=== PATIENT | male | born 1960 | race Caucasian/White ===

== ENCOUNTER → 2024-02-25 | Outpatient (CLI) | payer MEDICARE, SELFPAY ==
[2024-02-25 17:37] LABS: Absolute Lymphocyte Count 1.65 X10^3/uL (0.83-4.51); Absolute Neutrophil Count 5.2 X10^3/uL (2.0-7.7); Basophil# 0.06 X10^3/uL; Basophil% 0.8 % (0-1); Eosinophil# 0.27 X10^3/uL; Eosinophils% 3.4 % (0-5); Hematocrit 42.6 % (40-54); Hemoglobin 13.8 g/dL (13.0-16.5); Lymphocyte # 1.65 X10^3/ul (0.83-4.51); Lymphocyte % 20.8 % (19-41); Mean Corp Hgb Conc 32.4 g/dL (32-36); Mean Corpuscular Hgb 27.3 pg (27.0-32.0); Mean Corpuscular Volume 84.2 fL (80-94); Mean Platelet Vol. 9.9 fl (6.2-12.0); Monocyte# 0.72 X10^3/uL; Monocyte% 9.1 % (0-10); NRBC Flagged by Analyzer 0 % (0-5); Neutrophil % 65.3 % (47-70); Platelet Count 275 K/mm3 (150-450); RBC Distribution Width CV 13.3 % (11.6-14.6); RBC Distribution Width SD 41.1 fl (35.1-43.9); Red Blood Count 5.06 M/mm3 (4.6-6.2)
[2024-02-25 18:33] LABS: Hemoglobin A1c 6.8 % (3.8-5.6)
[2024-02-25 18:58] LABS: ALB/GLOB Ratio 0.9 RATIO (0.9-2.4); AST(SGOT) 18 U/L (15-37); Alanine Aminotransfer ALT/SGPT 27 U/L (16-61); Albumin, Serum 3.6 g/dL (3.2-5.0); Alkaline Phosphatase 55 U/L (45-117); Anion Gap 7 (5-15); BUN 13 mg/dL (7-18); Chloride 106 mmol/L (98-107); Cholesterol 140 mg/dL (200); Creatinine, Serum 0.72 mg/dL (0.70-1.30); EST Glomerular Filtration Rate 116 mL/min (>60); Est Glom Filt Rate - Afr Amer 140 mL/min (>60); Globulin 3.9 g/dL (2.2-4.2); Glucose 114 mg/dL (74-106); High Density Lipoprotein 54 mg/dL; Potassium 3.8 mmol/L (3.5-5.1); Protein, Total 7.5 g/dL (6.4-8.2); Sodium Level 136 mmol/L (136-145); Triglycerides 90 mg/dL; Very Low Density Lipoprotein 18 mg/dL (5-40)
== END | disposition home or self-care (01) ==
LOC: MFPLAB 15:06
PROVIDERS: PCP Family Medicine; Visit Provider Family Medicine
DX: E11.8 Type 2 diabetes mellitus with unspecified complications (principal)
CPT/HCPCS: 36415; 80053; 80061; 83036; 84443; 85025

== ENCOUNTER → 2024-06-30 | Outpatient (CLI) | payer MEDICARE, SELFPAY ==
[2024-06-30 10:17] LABS: Bacteria 0 SEEN /hpf (None Seen); Mucous, Urine 0 SEEN /hpf (<or=2+); Red Blood Cells-Urine 0 SEEN /hpf (0-5); Squamous Epithelial Cells - UA 0 SEEN /hpf (0-5); White Blood Cells 0 SEEN /hpf (0-5)
[2024-06-30 12:16] LABS: Absolute Lymphocyte Count 1.58 X10^3/uL (0.83-4.51); Basophil# 0.08 X10^3/uL; Eosinophil# 0.47 X10^3/uL; Eosinophils% 5.9 % (0-5); Hematocrit 40.8 % (40-54); Hemoglobin 13.4 g/dL (13.0-16.5); Lymphocyte # 1.58 X10^3/ul (0.83-4.51); Lymphocyte % 19.7 % (19-41); Mean Corp Hgb Conc 32.8 g/dL (32-36); Mean Corpuscular Hgb 27.5 pg (27.0-32.0); Mean Corpuscular Volume 83.6 fL (80-94); Mean Platelet Vol. 9.8 fl (6.2-12.0); Monocyte# 0.87 X10^3/uL; Monocyte% 10.8 % (0-10); NRBC Flagged by Analyzer 0 % (0-5); Neutrophil # 4.96 X10^3/uL (2.7-7.7); Neutrophil % 61.9 % (47-70); Platelet Count 230 K/mm3 (150-450); RBC Distribution Width CV 13.7 % (11.6-14.6); RBC Distribution Width SD 41.8 fl (35.1-43.9); Red Blood Count 4.88 M/mm3 (4.6-6.2)
[2024-06-30 12:34] LABS: Color, Urine Yellow (Yellow); Glucose, Dipstick Normal (Normal); Ketone-Dipstick Negative (Negative); Leukocyte Esterase-Dipstick Negative /ul (Negative); Nitrite-Dipstick Negative (Negative); Occult Blood-Urine 10 /ul (Negative); Protein-Dipstick Negative (Negative); Specific Gravity, Urine 1.015 (1.002-1.030); Urine Bilirubin Dipstick Negative (Negative); Urine Clarity Clear (Clear); Urine Urobilinogen Normal (Normal)
[2024-06-30 12:39] LABS: ALB/GLOB Ratio 0.9 RATIO (0.9-2.4); AST(SGOT) 24 U/L (15-37); Alanine Aminotransfer ALT/SGPT 27 U/L (16-61); Albumin, Serum 3.6 g/dL (3.2-5.0); Alkaline Phosphatase 62 U/L (45-117); Anion Gap 8 (5-15); BUN 16 mg/dL (7-18); BUN/Creat Ratio 22.9 RATIO (10-20); Calcium,Total 9.2 mg/dL (8.5-10.1); Chloride 106 mmol/L (98-107); Cholesterol 125 mg/dL (200); EST Glomerular Filtration Rate 120 mL/min (>60); Est Glom Filt Rate - Afr Amer 146 mL/min (>60); Globulin 3.9 g/dL (2.2-4.2); Glucose 120 mg/dL (74-106); High Density Lipoprotein 51 mg/dL; Protein, Total 7.5 g/dL (6.4-8.2); Sodium Level 136 mmol/L (136-145); Triglycerides 94 mg/dL; Very Low Density Lipoprotein 19 mg/dL (5-40)
[2024-06-30 13:05] LABS: Microalbumin,Random Urine 16.8 mg/L (NO RANGE EST.); Microalbumin:Creatinine Ratio 30.6 mg/g CRE (<30 mg/g CRE)
[2024-06-30 14:33] LABS: Hemoglobin A1c 6.8 % (3.8-5.6)
== END | disposition home or self-care (01) ==
LOC: MFPLAB 10:07
PROVIDERS: PCP Family Medicine; Referring Provider Family Medicine; Visit Provider Family Medicine
DX: E11.69 Type 2 diabetes mellitus with other specified complication (principal)
CPT/HCPCS: 36415; 80053; 80061; 81001; 82043; 82570; 83036; 85025

== ENCOUNTER → 2024-10-26 | Outpatient (CLI) | payer MEDICARE, SELFPAY ==
[2024-10-26 10:57] LABS: Hemoglobin A1c 7.1 % (<=5.6)
[2024-10-26 11:04] LABS: ALB/GLOB Ratio 1.3 RATIO (0.9-2.4); AST(SGOT) 25 U/L (<=37); Alanine Aminotransfer ALT/SGPT 20 U/L (<=46); Albumin, Serum 4.2 g/dL (3.4-4.8); Alkaline Phosphatase 59 U/L (40-129); Anion Gap 11 (5-15); BUN 9 mg/dL (4-19); BUN/Creat Ratio 15.1 RATIO (10-20); Calcium,Total 9.5 mg/dL (7.6-11.0); Carbon Dioxide 21.3 mmol/L (21.0-32.0); Chloride 103 mmol/L (98-108); Cholesterol 117 mg/dL (<=200); Creatinine, Serum 0.62 mg/dL (0.70-1.20); EST Glomerular Filtration Rate 106 (>60); Globulin 3.2 g/dL (2.2-4.2); Glucose 108 mg/dL (70-99); High Density Lipoprotein 45 mg/dL; Low Density Lipoprotein Calc. 52 mg/dL; PSA,Total - Annual Screen 0.78 ng/mL (0.02-4.00); Protein, Total 7.5 g/dL (5.9-8.4); Sodium Level 135 mmol/L (133-145); Total Bilirubin 0.35 mg/dL (0.00-1.30); Triglycerides 101 mg/dL; Very Low Density Lipoprotein 20 mg/dL (5-40)
== END | disposition home or self-care (01) ==
LOC: MFPLAB 09:07
PROVIDERS: PCP Family Medicine; Referring Provider Family Medicine; Visit Provider Family Medicine
DX: E11.8 Type 2 diabetes mellitus with unspecified complications (principal); Z12.5 Encounter for screening for malignant neoplasm of prostate
CPT/HCPCS: 36415; 80053; 80061; 83036; 84153; G0103

== ENCOUNTER → 2025-03-01 | Outpatient (CLI) | payer MEDICARE, SELFPAY ==
--- OUTSIDE RECORDS SUMMARY | 2025-03-01 08:38 | XMS RPT_ITS | CCD ---
Author Organization [facility] Care Team Providers Care Investigative Reporter Name Role Phone Ирина OLIVAREZ, Dr. Alfredito Forrest Primary Care Provider [phone]( [phone] Ирина OLIVAREZ, Dr. Alfredito Forrest Attending Provider Ирина OLIVAREZ, Dr. Alfredito Forrest Referring Provider Alfredito Gifford Attending Unavailable Alfredito Gifford Primary Care Unavailable Alfredito Gifford Referring Unavailable Alfredito Gifford Primary Care Unavailable Alfredito Gifford Referring Unavailable Alfredito Gifford Attending Unavailable Alfredito Gifford Primary Care Unavailable Alfredito Gifford Attending Unavailable Problems Problem Classification Problem Date Documented Da te Episodic/Chronic Diabetes mellitus with complications (2 sources) Type 2 diabetes mellitus with unspecified complications; Translations: [Type 2 diabetes mellitus with other specified complication] Onset: 07-21-2024 Chronic Results Test Name Value Interpretation Reference Range Facility Anion gap in Serum or Plasma Ordered By: Alfredito Gifford on 10-26-2024 Anion gap [Moles/Vol] 11 mmol/L 5-15 [facility] BUN/creatinine ratioOrdered By: Alfredito Gifford on 10-26-2024 Urea nitrogen/Creatinine [Mass ratio] 15.1 mg/mg 10-20 [facility] Bilirubin, totalOrdered By: Alfredito Gifford on 10-26-2024 Bilirubin [Mass/Vol] 0.35 mg/dL 0.00-1.30 [facility] Calculated very low density lipoprotein (VLDL) cholesterol measurementOrdered By: Alfredito Gifford on 10-26-2024 Calculated very low density lipoprotein (VLDL) cholesterol measurement 20 mg/dL -40 [facility] Carbon dioxide, total [Moles /volume] in Central venous bloodOrdered By: Alfredito Gifford on 10-26-2024 CO2 [Moles/Vol] 21.3 mmol/L 21.0-32.0 [facility] Chloride assayOrdered By: Yisel Gifford on 10-26-2024 Chloride [Moles/Vol] 103 mmol/L 98-108 [facility] Comprehensive Metabolic Prof ilon 10-26-2024 Albumin [Mass/Vol] 4.2 g/dL Normal 3.4-4.8 [facility] Comment on above: Order Comment: Order Date: 06/30/24 Order Info: [id number] - CMP Order Info: [id number] - LIPID Performed By: #### L 502.0250, L500.4100, L500.4050, L501.9985, L100.0100 #### [facility] [address] [place], [address] Albumin/Globulin [Mass ratio] 1.3 {ratio} Normal 0.9-2.4 [facility] Comment on above: Order Comment: Order Date: 06/30/24 Order Info: [id number] - CMP Order Info: [id number] - LIPID Performed By: #### L 502.0250, L500.4100, L500.4050, L501.9985, L100.0100 #### [facility] [address] [place], [address] ALK PHOS 59 U/L Normal 40-129 [facility] Comment on above: Order Comment: Order Date: 06/30/24 Order Info: [id number] - CMP Order Info: [id number] - LIPID Performed By: #### L 502.0250, L500.4100, L500.4050, L501.9985, L100.0100 #### [facility] [address] [place], [address] ALT [Catalytic activity/Vol] 20 U/L Normal <=46 [facility] Comment on above: Order Comment: Order Date: 06/30/24 Order Info: [id number] - CMP Order Info: [id number] - LIPID Performed By: #### L 502.0250, L500.4100, L500.4050, L501.9985, L100.0100 #### [facility] [address] [place], [address] AST [Catalytic activity/Vol] 25 U/L Normal <=37 [facility] Comment on above: Order Comment: Order Date: 06/30/24 Order Info: [id number] - CMP Order Info: [id number] - LIPID Performed By: #### L 502.0250, L500.4100, L500.4050, L501.9985, L100.0100 #### [facility] [address] [place], [address] Bilirubin [Mass/Vol] 0.35 mg/dL Normal 0.00-1.30 [facility] Comment on above: Order Comment: Order Date: 06/30/24 Order Info: [id number]- - CMP Order Info: [id number] - LIPID Performed By: #### L 502.0250, L500.4100, L500.4050, L501.9985, L100.0100 #### [facility] [address] [place], [address] BUN/CRE 15.1 RATIO Normal 10-20 [facility] Comment on above: Order Comment: Order Date: 06/30/24 Order Info: [id number] - CMP Order Info: [id number] - LIPID Performed By: #### L 502.0250, L500.4100, L500.4050, L501.9985, L100.0100 #### [facility] [address] [place], [address] Calcium [Mass/Vol] 9.5 mg/dL Normal 7.6-11.0 [facility] Comment on above: Order Comment: Order Date: 06/30/24 Order Info: [id number] - CMP Order Info: [id number] - LIPID Performed By: #### L 502.0250, L500.4100, L500.4050, L501.9985, L100.0100 #### [facility] [address] [place], [address] Chloride [Moles/Vol] 103 mmol/L Normal 98-108 [facility] Comment on above: Order Comment: Order Date: 06/30/24 Order Info: [id number] - CMP Order Info: [id number] - LIPID Performed By: #### L 502.0250, L500.4100, L500.4050, L501.9985, L100.0100 #### [facility] [address] [place], [address] CO2 [Moles/Vol] 21.3 mmol/L Normal 21.0-32.0 [facility] Comment on above: Order Comment: Order Date: 06/30/24 Order Info: [id number]- - CMP Order Info: [id number] - LIPID Performed By: #### L 502.0250, L500.4100, L500.4050, L501.9985, L100.0100 #### [facility] [address] [place], [address] Creatinine [Mass/Vol] 0.62 mg/dL Low 0.70-1.20 [facility] Comment on above: Order Comment: Order Date: 06/30/24 Order Info: [id number]- - CMP Order Info: [id number] - LIPID Performed By: #### L 502.0250, L500.4100, L500.4050, L501.9985, L100.0100 #### [facility] [address] [place], [address] GAP 11 Normal 5-15 [facility] Comment on above: Order Comment: Order Date: 06/30/24 Order Info: 0786- - CMP Order Info: [id number] - LIPID Performed By: #### L 502.0250, L500.4100, L500.4050, L501.9985, L100.0100 #### [facility] [address] [place], [address] GFR/1.73 sq M.predicted among non-blacks MDRD (S/P/Bld) [Vol rate/Area] 106 mL/min/{1.73_m2} Normal >60 [facility] Comment on above: Order Comment: Order Date: 06/30/24 Order Info: [id number] - CMP Order Info: [id number] - LIPID Result Comment: mL/m in/1.73m2 CKD-EPI Creatinine Equation (2020) Performed By: #### L 502.0250, L500.4100, L500.4050, L501.9985, L100.0100 #### [facility] [address] [place], [address] Globulin (S) [Mass/Vol] 3.2 g/dL Normal 2.2-4.2 [facility] Comment on above: Order Comment: Order Date: 06/30/24 Order Info: [id number] - CMP Order Info: [id number] - LIPID Performed By: #### L 502.0250, L500.4100, L500.4050, L501.9985, L100.0100 #### [facility] [address] [place], [address] Glucose [Mass/Vol] 108 mg/dL High 70-99 [facility] Comment on above: Order Comment: Order Date: 06/30/24 Order Info: [id number] - CMP Order Info: [id number] - LIPID Performed By: #### L 502.0250, L500.4100, L500.4050, L501.9985, L100.0100 #### [facility] [address] [place], [address] Potassium [Moles/Vol] 4.0 mmol/L Normal 3.3-5.1 [facility] Comment on above: Order Comment: Order Date: 06/30/24 Order Info: [id number] - CMP Order Info: [id number] - LIPID Performed By: #### L 502.0250, L500.4100, L500.4050, L501.9985, L100.0100 #### [facility] [address] [place], [address] Sodium [Moles/Vol] 135 mmol/L Normal 133-145 [facility] Comment on above: Order Comment: Order Date: 06/30/24 Order Info: [id number] - CMP Order Info: [id number] - LIPID Performed By: #### L 502.0250, L500.4100, L500.4050, L501.9985, L100.0100 #### [facility] [address] [place], [address] T PROT 7.5 g/dL Normal 5.9-8.4 [facility] Comment on above: Order Comment: Order Date: 06/30/24 Order Info: [id number] - CMP Order Info: [id number] - LIPID Performed By: #### L 502.0250, L500.4100, L500.4050, L501.9985, L100.0100 #### [facility] [address] [place], [address] Urea nitrogen [Mass/Vol] 9 mg/dL Normal 4-19 [facility] Comment on above: Order Comment: Order Date: 06/30/24 Order Info: [id number] - CMP Order Info: [id number] - LIPID Performed By: #### L 502.0250, L500.4100, L500.4050, L501.9985, L100.0100 #### [facility] [address] [place], [address] Glomerular filtration rate ( GFR) estimation/1.73 sq m using serum, plasma, or whole bOrdered By: Alfredito Gifford on 10-26-2024 GFR/1.73 sq M.predicted among non-blacks MDRD (S/P/Bld) [Vol rate/Area] 106 mL/min/{1.73_m2} >60 [facility] Comment on above: mL/min/1.73m2 CKD-EP I Creatinine Equation (2020) Hemoglobin A1con 10-26-2024 HbA1c (Bld) [Mass fraction] 7.1 % High <=5.6 [facility] Comment on above: Order Comment: Order Date: 06/30/24 Order Info: [id number] - CMP Order Info: [id number] - LIPID Result Comment: Norm al < 5.7 % Prediabetic 5.7 - 6.4 % Diabetic >or= 6.5 % Please note range changes. Performed By: #### L 502.0250, L500.4100, L500.4050, L501.9985, L100.0100 #### [facility] [address] [place], [address] Hemoglobin A1c percentageOrd ered By: Alfredito Gifford on 10-26-2024 HbA1c (Bld) [Mass fraction] 7.1 % High <5.7 [facility] Comment on above: Normal < 5.7 % Predi abetic 5.7 - 6.4 % Diabetic >or= 6.5 % Please note range changes. LDL calc ser/plasOrdered By: Alfredito Gifford on 10-26-2024 Cholesterol in LDL [Mass/Vol] 52 mg/dL [facility] Comment on above: Ptllfecubk=623-714 m g/dL & Higher Rgbb=636 mg/dL or greater Laboratory - Chemistry and C hemistry - challengeOrdered By: Alfredito Gifford on 10-26-2024 AST [Catalytic activity/Vol] 25 U/L <38 [facility] Lipid Profileon 10-26-2024 CHOL:HDL 2.60 Normal [facility] Comment on above: Order Comment: Order Date: 06/30/24 Order Info: [id number] - CMP Order Info: [id number] - LIPID Performed By: #### L 502.0250, L500.4100, L500.4050, L501.9985, L100.0100 #### [facility] [address] [place], [address] Cholesterol [Mass/Vol] 117 mg/dL Normal <=200 [facility] Comment on above: Order Comment: Order Date: 06/30/24 Order Info: [id number] - CMP Order Info: [id number] - LIPID Result Comment: Chol esterol level, Desirable <200 mg/dL Borderline high cholesterol 200-239 mg/dL High cholesterol >=240 mg/dL Recommendations of the NCEP Adult Treatment Panel for the following risk-cutoff thresholds for the [place] population. Performed By: #### L 502.0250, L500.4100, L500.4050, L501.9985, L100.0100 #### [facility] [address] [place], [address] Cholesterol in HDL [Mass/Vol] 45 mg/dL Normal [facility] Comment on above: Order Comment: Order Date: 06/30/24 Order Info: [id number] - CMP Order Info: [id number] - LIPID Result Comment: Riya onal Cholesterol Education Program (NCEP) guidelines: <40 mg/dL: Low HDL-cholesterol (major risk factor for CHD) >= 60 mg/dL: High HDL-cholesterol (negative risk factor for CHD) HDL-cholesterol is affected by a number of factors, e.g. smoking, exercise, hormones, sex and age. Performed By: #### L 502.0250, L500.4100, L500.4050, L501.9985, L100.0100 #### [facility] [address] [place], [address] Cholesterol in LDL [Mass/Vol] 52 mg/dL Normal [facility] Comment on above: Order Comment: Order Date: 06/30/24 Order Info: 0786-1 - CMP Order Info: [id number] - LIPID Result Comment: Bord ihuuii=022-407 mg/dL Higher Kydo=791 mg/dL or greater Performed By: #### L 502.0250, L500.4100, L500.4050, L501.9985, L100.0100 #### [facility] [address] [place], [address] Cholesterol in VLDL [Mass/Vol] 20 mg/dL Normal 5-40 [facility] Comment on above: Order Comment: Order Date: 06/30/24 Order Info: [id number] - CMP Order Info: [id number] - LIPID Performed By: #### L 502.0250, L500.4100, L500.4050, L501.9985, L100.0100 #### [facility] [address] [place], [address] Triglyceride [Mass/Vol] 101 mg/dL Normal [facility] Comment on above: Order Comment: Order Date: 06/30/24 Order Info: [id number] - CMP Order Info: [id number] - LIPID Result Comment: The drugs N-Acetylcysteine and Metamizole may falsely depress this assay. Normal range: <150 mg/dL Borderline High: 150-199 mg/dL High: 200-499 mg/dL Very High: >500 mg/dL Performed By: #### L 502.0250, L500.4100, L500.4050, L501.9985, L100.0100 #### [facility] [address] [place], [address] PSA,Total - Annual Screenon 10-26-2024 PSA,TOT SCREEN 0.78 ng/mL Normal 0.02-4.00 [facility] Comment on above: Order Comment: Order Date: 06/30/24 Order Info: 0786-1 - CMP Order Info: [id number] - LIPID Result Comment: This test was performed using the [employer] tPSA method. Measured values of a patient??sample can vary depending on the testing procedure used. PSA values determined on patient samples by different testing procedures cannot be used interchangeably. If there is a change in PSA assays while monitoring therapy, sequential testing should be performed to confirm baseline values. Performed By: #### L 502.0250, L500.4100, L500.4050, L501.9985, L100.0100 #### [facility] [address] [place], [address] Potassium measurement (mass/ volume)Ordered By: Alfredito Gifford on 10-26-2024 Potassium (Unsp spec) [Mass/Vol] 4.0 mmol/L 3.3-5.1 [facility] Screening total cholesterol/ high density lipoprotein (HDL) cholesterol ratioOrdered By: Alfredito Gifford on 10-26-2024 Cholesterol.total/Choles terol in HDL [Mass ratio] 2.60 {ratio} [facility] Serum creatinine measurement (mass/volume)Ordered By: Alfredito Gifford on 10-26-2024 Creatinine [Mass/Vol] 0.62 mg/dL Low 0.70-1.20 [facility] Serum globulin measurementOr dered By: Alfredito Gifford on 10-26-2024 Globulin (S) [Mass/Vol] 3.2 g/dL 2.2-4.2 [facility] Serum glucose measurement (m ass/volume)Ordered By: Alfredito Gifford on 10-26-2024 Glucose [Mass/Vol] 108 mg/dL High 70-99 [facility] Serum or plasma alanine salguero otransferase (ALT) measurementOrdered By: Alfredito Gifford on 10-26-2024 ALT [Catalytic activity/Vol] 20 U/L <47 [facility] Serum or plasma albumin ralph urement (mass/volume)Ordered By: Alfredito Gifford on 10-26-2024 Albumin [Mass/Vol] 4.2 g/dL 3.4-4.8 [facility] Serum or plasma albumin/glob ulin mass ratioOrdered By: Alfredito Gifford on 10-26-2024 Albumin/Globulin [Mass ratio] 1.3 {ratio} 0.9-2.4 [facility] Serum or plasma alkaline twila sphatase measurementOrdered By: Alfredito Gifford on 10-26-2024 ALP [Catalytic activity/Vol] 59 U/L 40-129 [facility] Serum or plasma calcium ralph urement (mass/volume)Ordered By: Alfredito Gifford on 10-26-2024 Calcium [Mass/Vol] 9.5 mg/dL 7.6-11.0 [facility] Serum or plasma cholesterol in HDL measurement (mass/volume)Ordered By: Alfredito Gifford on 10-26-2024 Cholesterol in HDL [Mass/Vol] 45 mg/dL >40 [facility] Comment on above: National Cholesterol Education Program (NCEP) guidelines:<40 mg/dL: Low HDL-cholesterol (major risk factor for CHD)>= 60 mg/dL: High HDL-cholesterol (negative risk factor for CHD)HDL-cholesterol is affected by a number of factors, e.g. smoking, exercise, hormones, sex and age. Serum or plasma cholesterol measurement (mass/volume)Ordered By: Alfredito Gifford on 10-26-2024 Cholesterol [Mass/Vol] 117 mg/dL <201 [facility] Comment on above: Cholesterol level, D esirable <200 mg/dLBorderline high cholesterol 200-239 mg/dLHigh cholesterol >=240 mg/dLRecommendations of the NCEP Adult Treatment Panel for the following risk-cutoff thresholds for the [place] population. Serum or plasma urea nitroge n measurement (mass/volume)Ordered By: Alfredito Gifford on 10-26-2024 Urea nitrogen [Mass/Vol] 9 mg/dL 4-19 [facility] Sodium levelOrdered By: Alfredito Gifford on 10-26-2024 Sodium [Moles/Vol] 135 mmol/L 133-145 [facility] Total proteinOrdered By: Angus Gifford on 10-26-2024 Protein [Mass/Vol] 7.5 g/dL 5.9-8.4 [facility] Triglycerides measurementOrd ered By: Alfredito Gifford on 10-26-2024 Triglyceride [Mass/Vol] 101 mg/dL <199 [facility] Comment on above: The drugs N-Acetylcy steine and Metamizole may falsely depress this assay. Normal range: <150 mg/dLBorderline High: 150-199 mg/dLHigh: 200-499 mg/dLVery High: >500 mg/dL CBC W/Diff, Automatedon Absolute Lymph 1.58 X10 3/uL Normal 0.83-4.51 [facility] Comment on above: Order Comment: Order Date: 06/30/24 Order Info: [id number] - CBCD Performed By: #### L 502.0250, L500.4100, L500.4050, L501.9985, L100.0100 #### [facility] [place], [address] Absolute Neut 5.0 X10 3/uL Normal 2.0-7.7 [facility] Comment on above: Order Comment: Order Date: 06/30/24 Order Info: [id number] - CBCD Performed By: #### L 502.0250, L500.4100, L500.4050, L501.9985, L100.0100 #### [facility] [address] [place], [address] Basophils/100 WBC (Bld) 1.0 % Normal 0-1 [facility] Comment on above: Order Comment: Order Date: 06/30/24 Order Info: 0184-1 - CBCD Performed By: #### L 502.0250, L500.4100, L500.4050, L501.9985, L100.0100 #### [facility] [address] [place], [address] Eosinophils/100 WBC (Bld) 5.9 % High 0-5 [facility] Comment on above: Order Comment: Order Date: 06/30/24 Order Info: 0184-1 - CBCD Performed By: #### L 502.0250, L500.4100, L500.4050, L501.9985, L100.0100 #### [facility] [address] [place], [address] Erythrocyte distribution width (RBC) [Ratio] 13.7 % Normal 11.6-14.6 [facility] Comment on above: Order Comment: Order Date: 06/30/24 Order Info: 0184-1 - CBCD Performed By: #### L 502.0250, L500.4100, L500.4050, L501.9985, L100.0100 #### [facility] [address] [place], [address] Hematocrit (Bld) [Volume fraction] 40.8 % Normal 40-54 [facility] Comment on above: Order Comment: Order Date: 06/30/24 Order Info: 0184-1 - CBCD Performed By: #### L 502.0250, L500.4100, L500.4050, L501.9985, L100.0100 #### [facility] [address] [place], [address] Hemoglobin (Bld) [Mass/Vol] 13.4 g/dL Normal 13.0-16.5 [facility] Comment on above: Order Comment: Order Date: 06/30/24 Order Info: 0184-1 - CBCD Performed By: #### L 502.0250, L500.4100, L500.4050, L501.9985, L100.0100 #### [facility] [address] [place], [address] IG% 0.700 Normal 0.0-0.9 [facility] Comment on above: Order Comment: Order Date: 06/30/24 Order Info: 0184-1 - CBCD Result Comment: IG% - Immature Granulocytes (promyelocytes, myelocytes and metamyelocytes) > 1% indicates that a LEFT SHIFT is Present. Performed By: #### L 502.0250, L500.4100, L500.4050, L501.9985, L100.0100 #### [facility] [address] [place], [address] Lymphocytes/100 WBC (Bld) 19.7 % Normal 19-41 [facility] Comment on above: Order Comment: Order Date: 06/30/24 Order Info: 0184-1 - CBCD Performed By: #### L 502.0250, L500.4100, L500.4050, L501.9985, L100.0100 #### [facility] [address] [place], [address] MCH (RBC) [Entitic mass] 27.5 pg Normal 27.0-32.0 [facility] Comment on above: Order Comment: Order Date: 06/30/24 Order Info: 0184-1 - CBCD Performed By: #### L 502.0250, L500.4100, L500.4050, L501.9985, L100.0100 #### [facility] [address] [place], [address] MCHC (RBC) [Mass/Vol] 32.8 g/dL Normal 32-36 [facility] Comment on above: Order Comment: Order Date: 06/30/24 Order Info: 0184-1 - CBCD Performed By: #### L 502.0250, L500.4100, L500.4050, L501.9985, L100.0100 #### [facility] [address] [place], [address] MCV (RBC) [Entitic vol] 83.6 fL Normal 80-94 [facility] Comment on above: Order Comment: Order Date: 06/30/24 Order Info: 0184-1 - CBCD Performed By: #### L 502.0250, L500.4100, L500.4050, L501.9985, L100.0100 #### [facility] [address] [place], [address] Monocytes/100 WBC (Bld) 10.8 % High 0-10 [facility] Comment on above: Order Comment: Order Date: 06/30/24 Order Info: 0184-1 - CBCD Performed By: #### L 502.0250, L500.4100, L500.4050, L501.9985, L100.0100 #### [facility] [address] [place], [address] Neutrophils/100 WBC (Bld) 61.9 % Normal 47-70 [facility] Comment on above: Order Comment: Order Date: 06/30/24 Order Info: 0184-1 - CBCD Performed By: #### L 502.0250, L500.4100, L500.4050, L501.9985, L100.0100 #### [facility] [address] [place], [address] Nucleated RBC (Bld) [#/Vol] 0 10*3/uL Normal 0-5 [facility] Comment on above: Order Comment: Order Date: 06/30/24 Order Info: 0184-1 - CBCD Performed By: #### L 502.0250, L500.4100, L500.4050, L501.9985, L100.0100 #### [facility] [address] [place], [address] Platelet mean volume (Bld) [Entitic vol] 9.8 fL Normal 6.2-12.0 [facility] Comment on above: Order Comment: Order Date: 06/30/24 Order Info: 0184-1 - CBCD Performed By: #### L 502.0250, L500.4100, L500.4050, L501.9985, L100.0100 #### [facility] [address] [place], [address] Platelets (Bld) [#/Vol] 230 10*3/uL Normal 150-450 [facility] Comment on above: Order Comment: Order Date: 06/30/24 Order Info: 0184-1 - CBCD Performed By: #### L 502.0250, L500.4100, L500.4050, L501.9985, L100.0100 #### [facility] [address] [place], [address] RBC (Bld) [#/Vol] 4.88 10*6/uL Normal 4.6-6.2 [facility] Comment on above: Order Comment: Order Date: 06/30/24 Order Info: 0184-1 - CBCD Performed By: #### L 502.0250, L500.4100, L500.4050, L501.9985, L100.0100 #### [facility] [address] [place], [address] RDW SD 41.8 fl Normal 35.1-43.9 [facility] Comment on above: Order Comment: Order Date: 06/30/24 Order Info: 0184-1 - CBCD Performed By: #### L 502.0250, L500.4100, L500.4050, L501.9985, L100.0100 #### [facility] [address] [place], [address] WBC (Bld) [#/Vol] 8.0 10*3/uL Normal 4.4-11.0 [facility] Comment on above: Order Comment: Order Date: 06/30/24 Order Info: 0184-1 - CBCD Performed By: #### L 502.0250, L500.4100, L500.4050, L501.9985, L100.0100 #### [facility] [address] [place], [place], [address] Comprehensive Metabolic Prof ilon 06-30-2024 Albumin [Mass/Vol] 3.6 g/dL Normal 3.2-5.0 [facility] Comment on above: Order Comment: Order Date: 06/30/24 Order Info: 0786-1 - CMP Order Info: [id number] - LIPID Performed By: #### L 502.0250, L500.4100, L500.4050, L501.9985, L100.0100 #### [facility] [address] [place], [address] Albumin/Globulin [Mass ratio] 0.9 {ratio} Normal 0.9-2.4 [facility] Comment on above: Order Comment: Order Date: 06/30/24 Order Info: 0786-1 - CMP Order Info: [id number] - LIPID Performed By: #### L 502.0250, L500.4100, L500.4050, L501.9985, L100.0100 #### [facility] [address] [place], [address] ALK P 62 U/L Normal 45-117 [facility] Comment on above: Order Comment: Order Date: 06/30/24 Order Info: 0786-1 - CMP Order Info: [id number] - LIPID Performed By: #### L 502.0250, L500.4100, L500.4050, L501.9985, L100.0100 #### [facility] [address] [place], [address] ALT [Catalytic activity/Vol] 27 U/L Normal 16-61 [facility] Comment on above: Order Comment: Order Date: 06/30/24 Order Info: [id number] - CMP Order Info: [id number] - LIPID Performed By: #### L 502.0250, L500.4100, L500.4050, L501.9985, L100.0100 #### [facility] [address] [place], [address] AST [Catalytic activity/Vol] 24 U/L Normal 15-37 [facility] Comment on above: Order Comment: Order Date: 06/30/24 Order Info: [id number] - CMP Order Info: [id number] - LIPID Performed By: #### L 502.0250, L500.4100, L500.4050, L501.9985, L100.0100 #### [facility] [address] [place], [address] Bilirubin [Mass/Vol] 0.40 mg/dL Normal 0.20-1.00 [facility] Comment on above: Order Comment: Order Date: 06/30/24 Order Info: [id number] - CMP Order Info: [id number] - LIPID Result Comment: For patients on eltrombopag therapy, use of Dimension [place] TBIL is not recommended. Performed By: #### L 502.0250, L500.4100, L500.4050, L501.9985, L100.0100 #### [facility] [address] [place], [address] BUN/CRE 22.9 RATIO High 10-20 [facility] Comment on above: Order Comment: Order Date: 06/30/24 Order Info: [id number] - CMP Order Info: [id number] - LIPID Performed By: #### L 502.0250, L500.4100, L500.4050, L501.9985, L100.0100 #### [facility] [address] [place], [address] CA,Total 9.2 mg/dL Normal 8.5-10.1 [facility] Comment on above: Order Comment: Order Date: 06/30/24 Order Info: [id number] - CMP Order Info: [id number] - LIPID Performed By: #### L 502.0250, L500.4100, L500.4050, L501.9985, L100.0100 #### [facility] [address] [place], [address] Chloride [Moles/Vol] 106 mmol/L Normal 98-107 [facility] Comment on above: Order Comment: Order Date: 06/30/24 Order Info: [id number] - CMP Order Info: [id number] - LIPID Performed By: #### L 502.0250, L500.4100, L500.4050, L501.9985, L100.0100 #### [facility] [address] [place], [address] CO2 [Moles/Vol] 22.0 mmol/L Normal 21.0-32.0 [facility] Comment on above: Order Comment: Order Date: 06/30/24 Order Info: [id number] - CMP Order Info: [id number] - LIPID Performed By: #### L 502.0250, L500.4100, L500.4050, L501.9985, L100.0100 #### [facility] [address] [place], [address] Creatinine [Mass/Vol] 0.70 mg/dL Normal 0.70-1.30 [facility] Comment on above: Order Comment: Order Date: 06/30/24 Order Info: [id number] - CMP Order Info: [id number] - LIPID Result Comment: The validity of the calculated GFR GFRAA in patients over 70 years has not been determined. Clinical correlation is essential. Performed By: #### L 502.0250, L500.4100, L500.4050, L501.9985, L100.0100 #### [facility] [address] [place], [address] EST GFR - AA 146 mL/min Normal >60 [facility] Comment on above: Order Comment: Order Date: 06/30/24 Order Info: [id number] - CMP Order Info: [id number] - LIPID Result Comment: Afri can [place] GFR Calc Performed By: #### L 502.0250, L500.4100, L500.4050, L501.9985, L100.0100 #### [facility] [address] [place], [address] GAP 8 Normal 5-15 [facility] Comment on above: Order Comment: Order Date: 06/30/24 Order Info: [id number] - CMP Order Info: [id number] - LIPID Performed By: #### L 502.0250, L500.4100, L500.4050, L501.9985, L100.0100 #### [facility] [address] [place], [address] GFR/1.73 sq M.predicted among non-blacks MDRD (S/P/Bld) [Vol rate/Area] 120 mL/min/{1.73_m2} Normal >60 [facility] Comment on above: Order Comment: Order Date: 06/30/24 Order Info: [id number] - CMP Order Info: [id number] - LIPID Result Comment: Non- GFR Calc Performed By: #### L 502.0250, L500.4100, L500.4050, L501.9985, L100.0100 #### [facility] [address] [place], [address] Globulin (S) [Mass/Vol] 3.9 g/dL Normal 2.2-4.2 [facility] Comment on above: Order Comment: Order Date: 06/30/24 Order Info: 0786-1 - CMP Order Info: [id number] - LIPID Performed By: #### L 502.0250, L500.4100, L500.4050, L501.9985, L100.0100 #### [facility] [address] [place], [address] Glucose [Mass/Vol] 120 mg/dL High 74-106 [facility] Comment on above: Order Comment: Order Date: 06/30/24 Order Info: 0786-1 - CMP Order Info: [id number] - LIPID Result Comment: Fast ing Glucose result from 100 to 125 mg/dL suggests IMPAIRED HOMEOSTASIS per A.D.A. criteria. Performed By: #### L 502.0250, L500.4100, L500.4050, L501.9985, L100.0100 #### [facility] [address] [place], [address] Potassium [Moles/Vol] 4.0 mmol/L Normal 3.5-5.1 [facility] Comment on above: Order Comment: Order Date: 06/30/24 Order Info: 0786-1 - CMP Order Info: [id number] - LIPID Performed By: #### L 502.0250, L500.4100, L500.4050, L501.9985, L100.0100 #### [facility] [address] [place], [address] Sodium [Moles/Vol] 136 mmol/L Normal 136-145 [facility] Comment on above: Order Comment: Order Date: 06/30/24 Order Info: 0786-1 - CMP Order Info: [id number] - LIPID Performed By: #### L 502.0250, L500.4100, L500.4050, L501.9985, L100.0100 #### [facility] [address] [place], [address] T PROT 7.5 g/dL Normal 6.4-8.2 [facility] Comment on above: Order Comment: Order Date: 06/30/24 Order Info: 0786-1 - CMP Order Info: [id number] - LIPID Performed By: #### L 502.0250, L500.4100, L500.4050, L501.9985, L100.0100 #### [facility] [address] [place], [address] Urea nitrogen [Mass/Vol] 16 mg/dL Normal 7-18 [facility] Comment on above: Order Comment: Order Date: 06/30/24 Order Info: 0786-1 - CMP Order Info: [id number] - LIPID Performed By: #### L 502.0250, L500.4100, L500.4050, L501.9985, L100.0100 #### [facility] [address] [place], [address] Hemoglobin A1con 06-30-2024 HbA1c (Bld) [Mass fraction] 6.8 % High 3.8-5.6 [facility] Comment on above: Order Comment: Order Date: 06/30/24 Order Info: [id number] - A1C Result Comment: Norm al < 5.7 % Prediabetic 5.7 - 6.4 % Diabetic >or= 6.5 % Please note range changes. Performed By: #### L 502.0250, L500.4100, L500.4050, L501.9985, L100.0100 #### [facility] [address] [place], [address] Lipid Profileon 06-30-2024 Cholesterol [Mass/Vol] 125 mg/dL Normal 200 [facility] Comment on above: Order Comment: Order Date: 06/30/24 Order Info: 0786-1 - CMP Order Info: [id number] - LIPID Result Comment: <200 mg/dL Desirable 200-240 mg/dL Borderline >240 mg/dL High Risk Performed By: #### L 502.0250, L500.4100, L500.4050, L501.9985, L100.0100 #### [facility] [address] [place], [address] Cholesterol in HDL [Mass/Vol] 51 mg/dL Normal [facility] Comment on above: Order Comment: Order Date: 06/30/24 Order Info: 0786-1 - CMP Order Info: [id number] - LIPID Result Comment: The drugs N-Acetylcysteine and Metamizole may falsely depress this assay. Reference Range HDL <40 mg/dL Low HDL Cholesterol HDL >or= 60 mg/dL High HDL Cholesterol Performed By: #### L 502.0250, L500.4100, L500.4050, L501.9985, L100.0100 #### [facility] [address] [place], [address] Cholesterol in LDL [Mass/Vol] 55 mg/dL Normal 0-130 [facility] Comment on above: Order Comment: Order Date: 06/30/24 Order Info: 0786-1 [facility] Order Info: [id number] - LIPID Performed By: #### L 502.0250, L500.4100, L500.4050, L501.9985, L100.0100 #### [facility] [address] [place], [address] Cholesterol in VLDL [Mass/Vol] 19 mg/dL Normal 5-40 [facility] Comment on above: Order Comment: Order Date: 06/30/24 Order Info: 0786-1 - [facility] Order Info: [id number] - LIPID Performed By: #### L 502.0250, L500.4100, L500.4050, L501.9985, L100.0100 #### [facility] [address] [place], [address] Triglyceride [Mass/Vol] 94 mg/dL Normal [facility] Comment on above: Order Comment: Order Date: 06/30/24 Order Info: 0786-1 - CMP Order Info: [id number] - LIPID Result Comment: The drugs N-Acetylcysteine and Metamizole may falsely depress this assay. Serum Triglycerides Reference Interval Normal <150 mg/dL Borderline high 150 - 199 mg/dL High 200 - 499 mg/dL Very High > or = 500 mg/dL Performed By: #### L 502.0250, L500.4100, L500.4050, L501.9985, L100.0100 #### [facility] [address] [place], [address] Microalb:Creat Ratio,Random URon 06-30-2024 Creatinine [Mass/Vol] 54.90 mg/dL Normal NO RANGE EST. [facility] Comment on above: Order Comment: Order Date: 06/30/24 Order Info: [id number] - MIACRE Performed By: #### L 502.0250, L500.4100, L500.4050, L501.9985, L100.0100 #### [facility] [address] [place], [address] MALB:CRE 30.6 mg/g CRE High <30 mg/g CRE [facility] Comment on above: Order Comment: Order Date: 06/30/24 Order Info: [id number] - MIACRE Performed By: #### L 502.0250, L500.4100, L500.4050, L501.9985, L100.0100 #### [facility] [address] [place], [address] MICROALBUMIN,UR 16.8 mg/L Normal NO RANGE EST. [facility] Comment on above: Order Comment: Order Date: 06/30/24 Order Info: [id number] - MIACRE Performed By: #### L 502.0250, L500.4100, L500.4050, L501.9985, L100.0100 #### [facility] [address] [place], [address] Urinalysis, Completeon 06-30 BACTERIA 0 SEEN Normal None Seen [facility] Comment on above: Order Comment: Order Date: 06/30/24 Order Info: 0786-1 - CMP Order Info: [id number] - LIPID Performed By: #### L 502.0250, L500.4100, L500.4050, L501.9985, L100.0100 #### [facility] [address] [place], [address] EPI,SQUAMOUS 0 SEEN Normal 0-5 [facility] Comment on above: Order Comment: Order Date: 06/30/24 Order Info: 0786-1 - CMP Order Info: [id number] - LIPID Performed By: #### L 502.0250, L500.4100, L500.4050, L501.9985, L100.0100 #### [facility] [address] [place], [address] Mucus Ql (Urine sed) 0 SEEN Normal [facility] Comment on above: Order Comment: Order Date: 06/30/24 Order Info: 0786-1 - CMP Order Info: [id number] - LIPID Performed By: #### L 502.0250, L500.4100, L500.4050, L501.9985, L100.0100 #### [facility] [address] [place], [address] RBC 0 SEEN Normal 0-5 [facility] Comment on above: Order Comment: Order Date: 06/30/24 Order Info: 0786-1 - CMP Order Info: [id number] - LIPID Performed By: #### L 502.0250, L500.4100, L500.4050, L501.9985, L100.0100 #### [facility] [address] [place], [address] WBC 0 SEEN Normal 0-5 [facility] Comment on above: Order Comment: Order Date: 06/30/24 Order Info: 0786-1 - CMP Order Info: [id number] - LIPID Performed By: #### L 502.0250, L500.4100, L500.4050, L501.9985, L100.0100 #### [facility] [address] [place], [address] CBC W/Diff, Automatedon 09-0 5-202 Absolute Lymph 1.65 X10 3/uL Normal 0.83-4.51 [facility] Comment on above: Order Comment: Order Date: 02/25/24 Order Info: [id number] - CBCD Performed By: #### L 500.4100, L501.9520, L500.4050, L501.9985, L100.0100 #### [facility] [address] [place], [address] Absolute Neut 5.2 X10 3/uL Normal 2.0-7.7 [facility] Comment on above: Order Comment: Order Date: 02/25/24 Order Info: [id number] - CBCD Performed By: #### L 500.4100, L501.9520, L500.4050, L501.9985, L100.0100 #### [facility] [address] [place], [address] Basophils/100 WBC (Bld) 0.8 % Normal 0-1 [facility] Comment on above: Order Comment: Order Date: 02/25/24 Order Info: 0184- - CBCD Performed By: #### L 500.4100, L501.9520, L500.4050, L501.9985, L100.0100 #### [facility] [address] [place], [address] Eosinophils/100 WBC (Bld) 3.4 % Normal 0-5 [facility] Comment on above: Order Comment: Order Date: 02/25/24 Order Info: 0184-1 - CBCD Performed By: #### L 500.4100, L501.9520, L500.4050, L501.9985, L100.0100 #### [facility] [address] [place], [address] Erythrocyte distribution width (RBC) [Ratio] 13.3 % Normal 11.6-14.6 [facility] Comment on above: Order Comment: Order Date: 02/25/24 Order Info: 0184-1 - CBCD Performed By: #### L 500.4100, L501.9520, L500.4050, L501.9985, L100.0100 #### [facility] [address] [place], [address] Hematocrit (Bld) [Volume fraction] 42.6 % Normal 40-54 [facility] Comment on above: Order Comment: Order Date: 02/25/24 Order Info: 0184- - CBCD Performed By: #### L 500.4100, L501.9520, L500.4050, L501.9985, L100.0100 #### [facility] [address] [place], [address] Hemoglobin (Bld) [Mass/Vol] 13.8 g/dL Normal 13.0-16.5 [facility] Comment on above: Order Comment: Order Date: 02/25/24 Order Info: 0184-1 - CBCD Performed By: #### L 500.4100, L501.9520, L500.4050, L501.9985, L100.0100 #### [facility] [address] [place], [address] IG% 0.600 Normal 0.0-0.9 [facility] Comment on above: Order Comment: Order Date: 02/25/24 Order Info: 0184- - CBCD Result Comment: IG% - Immature Granulocytes (promyelocytes, myelocytes and metamyelocytes) > 1% indicates that a LEFT SHIFT is Present. Performed By: #### L 500.4100, L501.9520, L500.4050, L501.9985, L100.0100 #### [facility] [address] [place], [address] Lymphocytes/100 WBC (Bld) 20.8 % Normal 19-41 [facility] Comment on above: Order Comment: Order Date: 02/25/24 Order Info: 0184-1 - CBCD Performed By: #### L 500.4100, L501.9520, L500.4050, L501.9985, L100.0100 #### [facility] [address] [place], [address] MCH (RBC) [Entitic mass] 27.3 pg Normal 27.0-32.0 [facility] Comment on above: Order Comment: Order Date: 02/25/24 Order Info: 0184- - CBCD Performed By: #### L 500.4100, L501.9520, L500.4050, L501.9985, L100.0100 #### [facility] [address] [place], [address] MCHC (RBC) [Mass/Vol] 32.4 g/dL Normal 32-36 [facility] Comment on above: Order Comment: Order Date: 02/25/24 Order Info: 0184- - CBCD Performed By: #### L 500.4100, L501.9520, L500.4050, L501.9985, L100.0100 #### [facility] [address] [place], [address] MCV (RBC) [Entitic vol] 84.2 fL Normal 80-94 [facility] Comment on above: Order Comment: Order Date: 02/25/24 Order Info: 0184-1 - CBCD Performed By: #### L 500.4100, L501.9520, L500.4050, L501.9985, L100.0100 #### [facility] [address] [place], [address] Monocytes/100 WBC (Bld) 9.1 % Normal 0-10 [facility] Comment on above: Order Comment: Order Date: 02/25/24 Order Info: 0184-1 - CBCD Performed By: #### L 500.4100, L501.9520, L500.4050, L501.9985, L100.0100 #### [facility] [address] [place], [address] Neutrophils/100 WBC (Bld) 65.3 % Normal 47-70 [facility] Comment on above: Order Comment: Order Date: 02/25/24 Order Info: 0184-1 - CBCD Performed By: #### L 500.4100, L501.9520, L500.4050, L501.9985, L100.0100 #### [facility] [address] [place], [address] Nucleated RBC (Bld) [#/Vol] 0 10*3/uL Normal 0-5 [facility] Comment on above: Order Comment: Order Date: 02/25/24 Order Info: 0184-1 - CBCD Performed By: #### L 500.4100, L501.9520, L500.4050, L501.9985, L100.0100 #### [facility] [address] [place], [address] Platelet mean volume (Bld) [Entitic vol] 9.9 fL Normal 6.2-12.0 [facility] Comment on above: Order Comment: Order Date: 02/25/24 Order Info: 0184-1 - CBCD Performed By: #### L 500.4100, L501.9520, L500.4050, L501.9985, L100.0100 #### [facility] [address] [place], [address] Platelets (Bld) [#/Vol] 275 10*3/uL Normal 150-450 [facility] Comment on above: Order Comment: Order Date: 02/25/24 Order Info: 0184-1 - CBCD Performed By: #### L 500.4100, L501.9520, L500.4050, L501.9985, L100.0100 #### [facility] [address] [place], [address] RBC (Bld) [#/Vol] 5.06 10*6/uL Normal 4.6-6.2 [facility] Comment on above: Order Comment: Order Date: 02/25/24 Order Info: 0184-1 - CBCD Performed By: #### L 500.4100, L501.9520, L500.4050, L501.9985, L100.0100 #### [facility] [address] [place], [address] RDW SD 41.1 fl Normal 35.1-43.9 [facility] Comment on above: Order Comment: Order Date: 02/25/24 Order Info: 0184-1 - CBCD Performed By: #### L 500.4100, L501.9520, L500.4050, L501.9985, L100.0100 #### [facility] [address] [place], [address] WBC (Bld) [#/Vol] 8.0 10*3/uL Normal 4.4-11.0 [facility] Comment on above: Order Comment: Order Date: 02/25/24 Order Info: 0184-1 - CBCD Performed By: #### L 500.4100, L501.9520, L500.4050, L501.9985, L100.0100 #### [facility] [address] [place], [address] Comprehensive Metabolic Prof ilon 02-25-2024 Albumin [Mass/Vol] 3.6 g/dL Normal 3.2-5.0 [facility] Comment on above: Order Comment: Order Date: 02/25/24 Order Info: 0786-1 - CMP Order Info: [id number] - LIPID Order Info: [id number] - TSH Performed By: #### L 500.4100, L501.9520, L500.4050, L501.9985, L100.0100 #### [facility] [address] [place], [address] Albumin/Globulin [Mass ratio] 0.9 {ratio} Normal 0.9-2.4 [facility] Comment on above: Order Comment: Order Date: 02/25/24 Order Info: 0786-1 - CMP Order Info: [id number] - LIPID Order Info: [id number] - TSH Performed By: #### L 500.4100, L501.9520, L500.4050, L501.9985, L100.0100 #### [facility] [address] [place], [address] ALK P 55 U/L Normal 45-117 [facility] Comment on above: Order Comment: Order Date: 02/25/24 Order Info: 0786-1 - CMP Order Info: [id number] - LIPID Order Info: [id number] - TSH Performed By: #### L 500.4100, L501.9520, L500.4050, L501.9985, L100.0100 #### [facility] [address] [place], [address] ALT [Catalytic activity/Vol] 27 U/L Normal 16-61 [facility] Comment on above: Order Comment: Order Date: 02/25/24 Order Info: 0786-1 - CMP Order Info: [id number] - LIPID Order Info: [id number] - TSH Performed By: #### L 500.4100, L501.9520, L500.4050, L501.9985, L100.0100 #### [facility] [address] [place], [address] AST [Catalytic activity/Vol] 18 U/L Normal 15-37 [facility] Comment on above: Order Comment: Order Date: 02/25/24 Order Info: 0786- - CMP Order Info: - LIPID Order Info: [id number] - TSH Performed By: #### L 500.4100, L501.9520, L500.4050, L501.9985, L100.0100 #### [facility] [address] [place], [address] Bilirubin [Mass/Vol] 0.50 mg/dL Normal 0.20-1.00 [facility] Comment on above: Order Comment: Order Date: 02/25/24 Order Info: [id number] - CMP Order Info: - LIPID Order Info: [id number] - TSH Result Comment: For patients on eltrombopag therapy, use of Dimension [place] TBIL is not recommended. Performed By: #### L 500.4100, L501.9520, L500.4050, L501.9985, L100.0100 #### [facility] [address] [place], [address] BUN/CRE 18.0 RATIO Normal 10-20 [facility] Comment on above: Order Comment: Order Date: 02/25/24 Order Info: 07 - CMP Order Info: - LIPID Order Info: [id number] - TSH Performed By: #### L 500.4100, L501.9520, L500.4050, L501.9985, L100.0100 #### [facility] [address] [place], [address] CA,Total 9.0 mg/dL Normal 8.5-10.1 [facility] Comment on above: Order Comment: Order Date: 02/25/24 Order Info: 07 - CMP Order Info: - LIPID Order Info: [id number] - TSH Performed By: #### L 500.4100, L501.9520, L500.4050, L501.9985, L100.0100 #### [facility] [address] [place], [address] Chloride [Moles/Vol] 106 mmol/L Normal 98-107 [facility] Comment on above: Order Comment: Order Date: 02/25/24 Order Info: 785- - CMP Order Info: - LIPID Order Info: [id number] - TSH Performed By: #### L 500.4100, L501.9520, L500.4050, L501.9985, L100.0100 #### [facility] [address] [place], [address] CO2 [Moles/Vol] 23.0 mmol/L Normal 21.0-32.0 [facility] Comment on above: Order Comment: Order Date: 02/25/24 Order Info: [id number] - CMP Order Info: - LIPID Order Info: [id number] - TSH Performed By: #### L 500.4100, L501.9520, L500.4050, L501.9985, L100.0100 #### [facility] [address] [place], [address] Creatinine [Mass/Vol] 0.72 mg/dL Normal 0.70-1.30 [facility] Comment on above: Order Comment: Order Date: 02/25/24 Order Info: [id number] - CMP Order Info: - LIPID Order Info: [id number] - TSH Result Comment: The validity of the calculated GFR GFRAA in patients over 70 years has not been determined. Clinical correlation is essential. Performed By: #### L 500.4100, L501.9520, L500.4050, L501.9985, L100.0100 #### [facility] [address] [place], [address] EST GFR - AA 140 mL/min Normal >60 [facility] Comment on above: Order Comment: Order Date: 02/25/24 Order Info: 785-06 - CMP Order Info: [id number] - LIPID Order Info: [id number] - TSH Result Comment: Afri can [place] GFR Calc Performed By: #### L 500.4100, L501.9520, L500.4050, L501.9985, L100.0100 #### [facility] [address] [place], [address] GAP 7 Normal 5-15 [facility] Comment on above: Order Comment: Order Date: 02/25/24 Order Info: [id number] - CMP Order Info: [id number] - LIPID Order Info: 3 - TSH Performed By: #### L 500.4100, L501.9520, L500.4050, L501.9985, L100.0100 #### [facility] [address] [place], [address] GFR/1.73 sq M.predicted among non-blacks MDRD (S/P/Bld) [Vol rate/Area] 116 mL/min/{1.73_m2} Normal >60 [facility] Comment on above: Order Comment: Order Date: 02/25/24 Order Info: 07 - CMP Order Info: [id number] - LIPID Order Info: 3 - TSH Result Comment: Non- GFR Calc Performed By: #### L 500.4100, L501.9520, L500.4050, L501.9985, L100.0100 #### [facility] [address] [place], [address] Globulin (S) [Mass/Vol] 3.9 g/dL Normal 2.2-4.2 [facility] Comment on above: Order Comment: Order Date: 02/25/24 Order Info: [id number] - CMP Order Info: [id number] - LIPID Order Info: 301-3 - TSH Performed By: #### L 500.4100, L501.9520, L500.4050, L501.9985, L100.0100 #### [facility] [address] [place], [address] Glucose [Mass/Vol] 114 mg/dL High 74-106 [facility] Comment on above: Order Comment: Order Date: 02/25/24 Order Info: 785-06 - CMP Order Info: - LIPID Order Info: [id number] - TSH Result Comment: Fast ing Glucose result from 100 to 125 mg/dL suggests IMPAIRED HOMEOSTASIS per A.D.A. criteria. Performed By: #### L 500.4100, L501.9520, L500.4050, L501.9985, L100.0100 #### [facility] [address] [place], [address] Potassium [Moles/Vol] 3.8 mmol/L Normal 3.5-5.1 [facility] Comment on above: Order Comment: Order Date: 02/25/24 Order Info: 785-06 - CMP Order Info: - LIPID Order Info: [id number] - TSH Performed By: #### L 500.4100, L501.9520, L500.4050, L501.9985, L100.0100 #### [facility] [address] [place], [address] Sodium [Moles/Vol] 136 mmol/L Normal 136-145 [facility] Comment on above: Order Comment: Order Date: 02/25/24 Order Info: 785-06 - CMP Order Info: - LIPID Order Info: [id number] - TSH Performed By: #### L 500.4100, L501.9520, L500.4050, L501.9985, L100.0100 #### [facility] [address] [place], [address] T PROT 7.5 g/dL Normal 6.4-8.2 [facility] Comment on above: Order Comment: Order Date: 02/25/24 Order Info: [id number] - CMP Order Info: - LIPID Order Info: [id number] - TSH Performed By: #### L 500.4100, L501.9520, L500.4050, L501.9985, L100.0100 #### [facility] [address] [place], [address] Urea nitrogen [Mass/Vol] 13 mg/dL Normal 7-18 [facility] Comment on above: Order Comment: Order Date: 02/25/24 Order Info: [id number] - CMP Order Info: [id number] - LIPID Order Info: [id number] - TSH Performed By: #### L 500.4100, L501.9520, L500.4050, L501.9985, L100.0100 #### [facility] [address] [place], [address] Hemoglobin A1con 02-25-2024 HbA1c (Bld) [Mass fraction] 6.8 % High 3.8-5.6 [facility] Comment on above: Order Comment: Order Date: 02/25/24 Order Info: [id number] - A1C Result Comment: Norm al < 5.7 % Prediabetic 5.7 - 6.4 % Diabetic >or= 6.5 % Please note range changes. Performed By: #### L 500.4100, L501.9520, L500.4050, L501.9985, L100.0100 #### [facility] [address] [place], [address] Lipid Profileon 02-25-2024 Cholesterol [Mass/Vol] 140 mg/dL Normal 200 [facility] Comment on above: Order Comment: Order Date: 02/25/24 Order Info: [id number] - CMP Order Info: [id number] - LIPID Order Info: [id number] - TSH Result Comment: <200 mg/dL Desirable 200-240 mg/dL Borderline >240 mg/dL High Risk Performed By: #### L 500.4100, L501.9520, L500.4050, L501.9985, L100.0100 #### [facility] [address] [place], [address] Cholesterol in HDL [Mass/Vol] 54 mg/dL Normal [facility] Comment on above: Order Comment: Order Date: 02/25/24 Order Info: [id number]- - CMP Order Info: [id number] - LIPID Order Info: [id number] - TSH Result Comment: The drugs N-Acetylcysteine and Metamizole may falsely depress this assay. Reference Range HDL <40 mg/dL Low HDL Cholesterol HDL >or= 60 mg/dL High HDL Cholesterol Performed By: #### L 500.4100, L501.9520, L500.4050, L501.9985, L100.0100 #### [facility] [address] [place] [id number] Cholesterol in LDL [Mass/Vol] 68 mg/dL Normal 0-130 [facility] Comment on above: Order Comment: Order Date: 02/25/24 Order Info: 07 - CMP Order Info: [id number] - LIPID Order Info: [id number] - TSH Performed By: #### L 500.4100, L501.9520, L500.4050, L501.9985, L100.0100 #### [facility] [address] [place], [address] Cholesterol in VLDL [Mass/Vol] 18 mg/dL Normal 5-40 [facility] Comment on above: Order Comment: Order Date: 02/25/24 Order Info: 07 - CMP Order Info: [id number] - LIPID Order Info: [id number] - TSH Performed By: #### L 500.4100, L501.9520, L500.4050, L501.9985, L100.0100 #### [facility] [address] [place], [address] Triglyceride [Mass/Vol] 90 mg/dL Normal [facility] Comment on above: Order Comment: Order Date: 02/25/24 Order Info: [id number]- - CMP Order Info: [id number] - LIPID Order Info: [id number] - TSH Result Comment: The drugs N-Acetylcysteine and Metamizole may falsely depress this assay. Serum Triglycerides Reference Interval Normal <150 mg/dL Borderline high 150 - 199 mg/dL High 200 - 499 mg/dL Very High > or = 500 mg/dL Performed By: #### L 500.4100, L501.9520, L500.4050, L501.9985, L100.0100 #### [facility] [address] [place], [address] Thyroid Stim Hormone (TSH)on 02-25-2024 TSH 1.410 uIU/mL Normal 0.358-3.740 [facility] Comment on above: Order Comment: Order Date: 02/25/24 Order Info: [id number] - CMP Order Info: [id number] - LIPID Order Info: [id number] - TSH Performed By: #### L 500.4100, L501.9520, L500.4050, L501.9985, L100.0100 #### [facility] [address] [place], [place], [address] Encounters Encounter Date Encounter Type Care Provider Facility Start: 10-26-2024 End: 10-26-[address] Alfredito Gifford MD Work Phone: [facility] Work Phone: Start: 10-26-2024 End: 10-26-[address] Alfredito Gifford MD -Laboratory, [facility] Start: 10-26-2024 End: 10-26-2024 ambulatory Alfredito Gifford Facility:[facility] Start: 06-30-2024 End: 06-30-2024 ambulatory Alfredito Gifford Facility:[facility] Start: 02-25-2024 End: 02-25-2024 ambulatory Alfredito Gifford Facility:[facility] Procedures Date Procedure Procedure Detail Performing Clinician Start: 10-26-2024 Prostate specific an tigen measurement Dr. Alfredito Gifford MD Work Phone: Comment on above: This test was perfor med using the [employer] tPSA method. Measured values of a patient sample can vary depending on the testing procedure used. PSA values determined on patient samples by different testing procedures cannot be used interchangeably. If there is a change in PSA assays while monitoring therapy, sequential testing should be performed to confirm baseline values. Payers Date Payer Category Payer Medicare [id number] 2024 Self-pay Unknown [id number] Unknown [id number] Unknown [id number] [id number] Social History Date Type Detail Facility Tobacco smoking stat [facility] Unknown if ever smoked [facility] Work Phone: Start: 1960 Sex Assigned At Male [facility] Evaluation note Note Date & Type Note Facility Evaluation note No assessment information availa ble [facility] Work Phone: Reason for referral (narrative) Note Date & Type Note Facility Reason for referral (narrative) No reason for referral information available [facility] Work Phone: Summary Purpose Family History No Family History Records Found Advance Directives No Advanced Directives Records Found Additional Source Comments Care Teams (unrecognized sec tion and content) Team Status: Active Member Role Status Dates Dr. Alfredito Gifford MD Primary Care Provider Active Team Status: Inactive Member Role Status Dates Dr. Alfredito Gifford MD Primary Care Provider Active Start: October 26, 2024 End: October 26, 2024 Dr. Alfredito Gifford MD Attending Provider Active Start: October 26, 2024 End: October 26, 2024 Dr. Alfredito Gifford MD Referring Provider Active Start: October 26, 2024 End: October 26, 2024 Goals (unrecognized section and content) Goals may be documented in a n alternate section (unrecognized sect ion and content) No Status Records Found INFORMATION SOURCE (unrecogn ized section and content) DATE CREATED AUTHOR 11/01/2024 [facility] FOR RECORDS PERTAINING TO PATIENTS WHO ARE OR HAVE BEEN ENROLLED IN A CHEMICAL DEPENDENCY/SUBSTANCEABUSE PROGRAM, SOME INFORMATION MAY BE OMITTED. This clinical summary was aggregated from multiple sources. Caution should be exercised in using it in the provision of clinical care. This summary normalizes information from multiple sources, and as a consequence, information in this document may materially change the coding, format and clinical context of patient data. In addition, data may be omitted in some cases. CLINICAL DECISIONS SHOULD BE BASED ON THE PRIMARY CLINICAL RECORDS. [facility]. provides no warranty or guarantee of the accuracy or completeness of information in this document.
[2025-03-01 10:25] LABS: Hematocrit 39.6 % (40-54); Hemoglobin 13.3 g/dL (13.0-16.5); Immature Granulocytes Count 0.080 X10^3/uL (0.0-0.0); Mean Corp Hgb Conc 33.6 g/dL (32-36); Mean Corpuscular Volume 84.8 fL (80-94); Mean Platelet Vol. 9.7 fl (6.2-12.0); NRBC Flagged by Analyzer 0 % (0-5); Platelet Count 229 K/mm3 (150-450); RBC Distribution Width CV 13.7 % (11.6-14.6); RBC Distribution Width SD 42.1 fl (35.1-43.9); Red Blood Count 4.67 M/mm3 (4.6-6.2); White Blood Count 7.4 K/mm3 (4.4-11.0)
[2025-03-01 10:38] LABS: Creatinine, Urine (random) 37.20 mg/dL (39.00-259.00); Microalbumin,Random Urine < 12.0 mg/L (<20 mg/L)
[2025-03-01 10:41] LABS: AST(SGOT) 22 U/L (<=37); Alanine Aminotransfer ALT/SGPT 19 U/L (<=46); Albumin, Serum 4.0 g/dL (3.4-4.8); Alkaline Phosphatase 51 U/L (40-129); Anion Gap 11 (5-15); BUN 13 mg/dL (4-19); BUN/Creat Ratio 23.3 RATIO (10-20); Calcium,Total 9.1 mg/dL (7.6-11.0); Carbon Dioxide 21.9 mmol/L (21.0-32.0); Chloride 103 mmol/L (98-108); Cholesterol 122 mg/dL (<=200); Globulin 2.9 g/dL (2.2-4.2); Glucose 117 mg/dL (70-99); Low Density Lipoprotein Calc. 57 mg/dL; Potassium 3.9 mmol/L (3.3-5.1); Triglycerides 78 mg/dL; Very Low Density Lipoprotein 16 mg/dL (5-40); cholesterol:hdl ratio screen 2.46
== END | disposition home or self-care (01) ==
LOC: MFPLAB 08:18
PROVIDERS: PCP Family Medicine; Visit Provider Family Medicine
DX: E11.8 Type 2 diabetes mellitus with unspecified complications (principal)
CPT/HCPCS: 36415; 80053; 80061; 82043; 82570; 83036; 85025